=== PATIENT | female | born 1975 | race Two or more races ===

== ENCOUNTER 2019-10-18 14:33 | Emergency (ER) | payer MEDICAID ==
[~2019-10-18] VITALS: Ht 149.9 cm; Wt 71.7 kg
[2019-10-18 14:25] VITALS: BP 153/90
--- NOTE | 2019-10-18 14:54 | Emergency Room Report ---
History of Present Illness General Chief Complaint: Asthma Source: Patient Present Illness HPI Disclaimer: Please note that this report is being documented using DRAGON technology. This can lead to erroneous entry secondary to incorrect interpretation by the dictating instrument. HPI: 44-year-old female history of asthma and recent positive COVID 19 on September 19 presented for cough and shortness of breath. She states at night she gets short of breath and wheezing, uses her inhaler with improvement. She denies any fevers. She currently takes albuterol as needed and was prescribed azithromycin by her primary care doctor 1 week ago. Does report a productive cough. 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 COVID-19 Screening: Positive COVID-19 COVID-19 Testing Source: 09/20/19 Patient History Now: No Reviewed Nursing Documentation: PMH: Agreed; PSxH: Agreed Nursing Documentation-PMH Past Medical History: No History, Except For Hx Asthma: Yes Review of Systems All Other Systems: negative except mentioned in HPI Physical Exam Vital Signs Date Time Temp Pulse Resp B/P (MAP) Pulse Ox O2 Delivery O2 Flow Rate FiO2 10/18/19 14:25 98.2 80 20 153/90 (111) 98 Room Air Sp02 EP Interpretation: reviewed, normal General Appearance: well appearing, no apparent distress Head: normocephalic, atraumatic Eyes: bilateral eye PERRL, bilateral eye EOMI ENT: hearing grossly normal, moist mucus membranes Neck: full range of motion, supple Respiratory: lungs clear, normal breath sounds, no rhonchi, no respiratory distress, no retraction, no wheezing Cardiovascular #1: normal peripheral pulses, regular rate, rhythm, no murmur Gastrointestinal: non tender, soft, non-distended, no guarding Neurologic: alert, oriented x3, no focal defects Skin: normal color, warm/dry Medical Decision Making ER Course MDM: Differential included but not limited to asthma exacerbation, pneumonia, coronavirus infection Clinical course-patient patient was in no acute distress on exam. She was nontoxic-appearing. She had no audible wheezing. She states her symptoms are mainly at night. Patient was COVID +1-month ago I have a low suspicion for reinfection as she is afebrile and not hypoxic in no acute distress. I did order chest x-ray for any gross infiltrate. Will start patient on p.o. prednisone. Chest x-ray showed no acute process. Plan- Discharge patient home p.o. prednisone continue her albuterol as needed follow-up PMD. Chest X-Ray Diagnostic Results Chest X-Ray Diagnostic Results : Chest X-Ray Ordered: Yes # of Views/Limited/Complete: 1 View Indication: Shortness of Breath EP Interpretation: Yes Interpretation: no consolidation, no effusion, no pneumothorax Impression: No acute disease Electronically Signed by: Espinoza Fitzgerald MD Last Vital Signs Date Time Temp Pulse Resp B/P (MAP) Pulse Ox O2 Delivery O2 Flow Rate FiO2 10/18/19 14:28 80 20 Room Air 10/18/19 14:25 98.2 153/90 98 Disposition: HOME, SELF-CARE Condition: Stable Scripts Prednisone* (PREDNISONE*) 20 Mg Tablet 40 MG ORAL DAILY, #8 TAB Prov: Espinoza Fitzgerald M.D. 10/18/19 Espinoza Fitzgerald M.D. Oct 18, 2019 14:54
[2019-10-18] MEDS ORDERED: PREDNISONE20 MG ORAL (15:20)
[2019-10-18 15:24] VITALS: BP 148/87
--- NOTE | 2019-10-18 15:58 | Diagnostic Imaging Report ---
Indication: Cough Technique: One view of the chest Comparison: none Findings: Patient is rotated slightly to the left. Inspiration is suboptimal. There is questionably slight hazy opacity at the periphery of the left lung, probably due to overlying soft tissue. Otherwise, lungs and pleural spaces are clear. Heart size is upper limits of normal Impression: No definite acute process
== END 2019-10-18 15:24 | disposition home or self-care (01) ==
LOC: EDBD 14:33 → EMR 15:21
DX: U07.1 COVID-19 (principal); R05 Cough; R06.02 Shortness of breath; J45.909 Unspecified asthma, uncomplicated; R06.2 Wheezing
CPT/HCPCS: 71045; J7512; Z7502; 99283